=== PATIENT | male | born 1980 | race Caucasian/White ===

== ENCOUNTER 2016-11-29 09:25 | Emergency (ER) | payer OTHER ==
[~2016-11-29] VITALS: Ht 188 cm; Wt 99.5 kg
[2016-11-29 09:34] VITALS: TEMP 36.8; Ht 188 cm; Wt 99.5 kg
[2016-11-29] MEDS ORDERED: ACET-1256 PO (09:50)
[2016-11-29] MEDS ORDERED: ASPI325T39 PO (09:50)
[2016-11-29 10:01] VITALS: O2SAT 97
[2016-11-29] MEDS ORDERED: SODIUM CHLORIDE 0.9% 1000ML 1,000 ML IV STA (10:16)
[2016-11-29 10:24] LABS: BASO % 0.9 %; BASO ABS # 0.04 K/uL (0-0.2); COMPLETE YES; EOS % 5.1 %; HEMATOCRIT 46.4 % (42-52); IG% 0.2 %; LYMPH % 38.1 %; LYMPH ABS # 1.71 K/uL (1.2-3.4); MEAN CELL VOLUME 83.9 fL (80-100); MEAN CORPUSCULAR HEMOGLOBIN 31.5 pg (25-34); MEAN CORPUSCULAR HGB CONC 37.5 g/dl (32-36); MEAN PLATELET VOLUME 8.9 fL (7.4-10.4); MONO % 5.8 %; NEUT % 49.9 %; PLATELET COUNT 155 K/uL (130-400); RED BLOOD COUNT 5.53 M/uL (4.7-6.1); WHITE BLOOD COUNT 4.49 K/uL (4.8-10.8)
[2016-11-29 10:31] LABS: BLOOD UREA NITROGEN 11 mg/dl (7-18); BUN/CREATININE RATIO 9.1 (10-20); CALCIUM 9.2 mg/dl (8.5-10.1); CARBON DIOXIDE 29 mmol/L (21-32); CHLORIDE 106 mmol/L (98-107); GLUCOSE 114 mg/dl (70-99); POTASSIUM 3.6 mmol/L (3.5-5.1); SODIUM 142 mmol/L (136-145)
--- NOTE | 2016-11-29 10:35 | DIAGNOSTIC IMAGING REPORT ---
CHEST ONE VIEW PORTABLE CLINICAL HISTORY: Shortness of breath, hypertension, chest tightness. COMPARISON STUDY: No previous studies for comparison. FINDINGS: The cardiac and mediastinal contours are normal. There is no evidence of focal pulmonary consolidation. There is no evidence of failure. No pleural effusions are visualized.[ IMPRESSION: No active disease in the chest. Electronically signed by: Gerald Valentin M.D. 11/29/2016 10:33 AM Dictated Date/Time: 11/29/2016 10:33 AM
--- NOTE | 2016-11-29 11:56 | EMERGENCY ROOM VISIT NOTE ---
History Report prepared by Vince: Janelle Mott Under the Supervision of: Dr. Peter Mueller M.D. First contact with patient: 10:05 Chief Complaint: CARDIAC ASSESSMENT Stated Complaint: HYPERTENSION, CHEST TIGHTNESS Nursing Triage Summary: Pt. reports chest tightness and feels like his blood pressure is "getting higher and higher." He reports having a lot of anxiety recently. History of Present Illness The patient is a 36 year old male who presents to the Emergency Room with complaints of persistent chest pain starting 2 days ago. Over the last 24 hours , he has been feeling tense and the chest pain has been constant. He describes the pain as a pressure. He has taken a Tums to no significant relief. His chest pain does not worsen with lying flat. He notes an episode of diarrhea yesterday. He denies any nausea, vomiting, SOB, fever, chills, cough, congestion , headache, dizziness, leg swelling, melena, hematochezia, or dysuria. At his last check up 2 months ago, his blood pressure was high. He was not placed on medications at that time. He denies any history of smoking. He denies any recent travel or surgery. 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 He admits to occasional alcohol use on the weekends. He denies any drug use. He denies any family history of early heart attack. He denies any history of cancer or blood clots. Source of History: patient, spouse/significant other Onset: 2 days ago Position: chest Quality: pressure Timing: other (persistent) Associated Symptoms: + diarrhea, No fevers, No chills, No headache, No cough , No SOB, No nausea, No vomiting, No melena, No hematochezia, No urinary symptoms Note: Pt denies congestion, leg swelling. Review of Systems See HPI for pertinent positives and negatives. A total of ten systems were reviewed and were otherwise negative. Past Medical & Surgical Medical Problems: (1) No active medical problems Family History Blood clots Social History Smoking Status: Never Smoker Alcohol Use: occasionally Drug Use: none Occupation Status: employed Current/Historical Medications Scheduled PRN Acetaminophen (Tylenol), 500 MG PO Q6 PRN for Pain Miscellaneous Medications Aspirin (Aspirin Ec), 325 MG PO Allergies Coded Allergies: No Known Allergies (Unverified , 11/29/16) Physical Exam Vital Signs Date Time Temp Pulse Resp B/P (MAP) Pulse Ox O2 Delivery O2 Flow Rate FiO2 11/29/16 12:14 70 18 155/117 97 Room Air 11/29/16 11:32 68 18 149/112 97 Room Air 11/29/16 10:01 75 16 159/114 97 Room Air 11/29/16 10:01 97 Room Air 11/29/16 10:01 97 Room Air 11/29/16 09:45 75 11/29/16 09:34 36.8 79 18 160/110 97 Room Air Physical Exam GENERAL: Awake, alert, well-appearing, in no acute distress HENT: Normocephalic, atraumatic. Mucous membranes dry. EYES: Normal conjunctiva. Sclera non-icteric. NECK: Supple. No nuchal rigidity. FROM. No JVD. RESPIRATORY: Clear to auscultation. CARDIAC: Regular rate, normal rhythm. Extremities warm and well perfused. Pulses equal. ABDOMEN: Soft, non-distended. No tenderness to palpation. No rebound or guarding. No masses. RECTAL: Deferred. MUSCULOSKELETAL: Chest examination reveals no tenderness. The back is symmetrical on inspection without obvious abnormality. There is no CVA tenderness to palpation. No joint edema. LOWER EXTREMITIES: Calves are equal size bilaterally and non-tender. No edema. No discoloration. NEURO: Normal sensorium. No sensory or motor deficits noted. SKIN: No rash or jaundice noted. Medical Decision & Procedures ER Provider Diagnostic Interpretation: X-ray: Per my interpretation, radiologist review. CHEST ONE VIEW PORTABLE CLINICAL HISTORY: Shortness of breath, hypertension, chest tightness. COMPARISON STUDY: No previous studies for comparison. FINDINGS: The cardiac and mediastinal contours are normal. There is no evidence of focal pulmonary consolidation. There is no evidence of failure. No pleural effusions are visualized.[ IMPRESSION: No active disease in the chest. Electronically signed by: Gerald Valentin M.D. 11/29/2016 10:33 AM Dictated Date/Time: 11/29/2016 10:33 AM Laboratory Results 11/29/16 09:50 Red Blood Count 5.53, Mean Corpuscular Volume 83.9, Mean Corpuscular Hemoglobin 31.5, Mean Corpuscular Hemoglobin Concent 37.5, Mean Platelet Volume 8.9, Neutrophils (%) (Auto) 49.9, Lymphocytes (%) (Auto) 38.1, Monocytes (%) (Auto) 5.8, Eosinophils (%) (Auto) 5.1, Basophils (%) (Auto) 0.9, Neutrophils # (Auto) 2.24, Lymphocytes # (Auto) 1.71, Monocytes # (Auto) 0.26, Eosinophils # (Auto) 0.23, Basophils # (Auto) 0.04 11/29/16 09:50 Test 11/29/16 09:50 White Blood Count 4.49 K/uL (4.8-10.8) Red Blood Count 5.53 M/uL (4.7-6.1) Hemoglobin 17.4 g/dL (14.0-18.0) Hematocrit 46.4 % (42-52) Mean Corpuscular Volume 83.9 fL (80-100) Mean Corpuscular Hemoglobin 31.5 pg (25-34) Mean Corpuscular Hemoglobin Concent 37.5 g/dl (32-36) Platelet Count 155 K/uL (130-400) Mean Platelet Volume 8.9 fL (7.4-10.4) Neutrophils (%) (Auto) 49.9 % Lymphocytes (%) (Auto) 38.1 % Monocytes (%) (Auto) 5.8 % Eosinophils (%) (Auto) 5.1 % Basophils (%) (Auto) 0.9 % Neutrophils # (Auto) 2.24 K/uL (1.4-6.5) Lymphocytes # (Auto) 1.71 K/uL (1.2-3.4) Monocytes # (Auto) 0.26 K/uL (0.11-0.59) Eosinophils # (Auto) 0.23 K/uL (0-0.5) Basophils # (Auto) 0.04 K/uL (0-0.2) RDW Standard Deviation 37.7 fL (36.4-46.3) RDW Coefficient of Variation 12.4 % (11.5-14.5) Immature Granulocyte % (Auto) 0.2 % Immature Granulocyte # (Auto) 0.01 K/uL (0.00-0.02) Anion Gap 7.0 mmol/L (3-11) Est Creatinine Clear Calc Drug Dose 105.2 ml/min Estimated GFR () 88.4 Estimated GFR (Non- 76.3 BUN/Creatinine Ratio 9.1 (10-20) Calcium Level 9.2 mg/dl (8.5-10.1) Troponin I < 0.015 ng/ml (0-0.045) Laboratory results reviewed by me Medications Administered Medications (Trade) Dose Ordered Sig/Gume Route Start Time Stop Time Status Last Admin Dose Admin Sodium Chloride 1,000 ml @ 999 mls/hr Q1H1M STAT IV 11/29/16 10:16 11/29/16 11:16 DC 11/29/16 10:21 999 MLS/HR ECG Indication: chest pain Rate (beats per minute): 74 Rhythm: normal sinus Findings: no acute ischemic change, other (normal axis) ED Course 1007: The patient was evaluated in room B12B. A complete history and physical exam was performed. 1016: NSS 1000 ml @ 999 mls/hr IV. 1145: I reevaluated the patient. He is feeling somewhat better. I discussed the results and treatment plan with him. He verbalized understanding and agreement. He will follow up with his PCP this afternoon to discuss his high blood pressure. He was discharged home. Medical Decision I reviewed the patient's past medical history, medications, and the nursing notes as described above. Differential diagnosis: stress, anxiety, ACS, pneumonia, costochondritis, PE. Patient is a 36-year-old gentleman who presents to the emergency department with 2 days of constant chest pain per history of present illness. Arrives in no acute distress afebrile with stable vital signs. EKG and chest x-ray unremarkable. Troponin negative in the setting of 48 hours of constant symptoms. Patient is a heart score of 1, low risk ACS unlikely. Perc negative. WBC slightly decreased however no symptoms or signs of infection. Symptoms are not worse when supine therefore pericarditis not likely in the setting of normal EKG without OR depressions or spodick sign. Symptoms most likely related to patient's recent stress and anxiety with preoccupations regarding work responsibilities. Stress medication strategies discussed however patient will follow up with his primary care doctor for reevaluation and monitoring of his elevated blood pressure today. Patient agreeable and was discharged per instructions. Medication Reconcilliation Current Medication List: was personally reviewed by me Blood Pressure Screening Patient's blood pressure: Elevated blood pressure Blood pressure disposition: Referred to PCP Impression Primary Impression: Chest pain Additional Impression: Anxiety Scribe Attestation The scribe's documentation has been prepared under my direction and personally reviewed by me in its entirety. I confirm that the note above accurately reflects all work, treatment, procedures, and medical decision making performed by me. Departure Information Dispostion Home / Self-Care Referrals Indra Sanders M.D. (PCP) Patient Instructions Anxiety Body Response, Chest Pain - [facility], [facility] Additional Instructions Please follow up with your primary care physician today as scheduled for reevaluation of your blood pressure and to discuss your symptoms of stress and anxiety. Your white blood cells were slightly decreased and should be repeated at a later date. Otherwise, your exam, EKG, chest x-ray, and lab results did not show signs of an emergent condition. Return to the emergency department for worsening symptoms as described in the accompanying instructions. Problem Qualifiers
[2016-11-29 12:14] VITALS: BP 155/117; PULSE 70; O2SAT 97
== END 2016-11-29 12:22 | disposition home or self-care (01) ==
LOC: C.EDB 09:28
DX: R07.9 Chest pain, unspecified (principal); F41.9 Anxiety disorder, unspecified

== ENCOUNTER → 2017-06-17 | Outpatient (CLI) | payer OTHER ==
[~2017-06-17] MED LIST: ACET-1256 PO; ASPI325T39 PO
[2017-06-17 13:37] LABS: HEP C IGG 13 YRS+OLDER_RFLX NEG (NEG)
== END | disposition home or self-care (01) ==
LOC: C.LAB 11:12
PROVIDERS: ATTEND Specialist
DX: Z11.3 Encounter for screening for infections with a predominantly sexual mode of transmission (principal); Z11.4 Encounter for screening for human immunodeficiency virus [HIV]; Z11.59 Encounter for screening for other viral diseases

== ENCOUNTER → 2017-06-23 | Outpatient (CLI) | payer OTHER | END | disposition home or self-care (01) | LOC: C.LAB 08:20 | PROVIDERS: ATTEND Specialist | DX: Z31.41 Encounter for fertility testing (principal) ==

== ENCOUNTER → 2017-12-06 | Outpatient (CLI) | payer OTHER ==
[2017-12-06 10:41] LABS: BASO % 0.6 %; BASO ABS # 0.03 K/uL (0-0.2); EOS % 5.4 %; EOS ABS # 0.27 K/uL (0-0.5); HEMATOCRIT 44.3 % (42-52); HEMOGLOBIN 16.1 g/dL (14.0-18.0); IG# 0.01 K/uL (0.00-0.02); LYMPH % 40.9 %; LYMPH ABS # 2.05 K/uL (1.2-3.4); MEAN CORPUSCULAR HEMOGLOBIN 30.9 pg (25-34); MEAN CORPUSCULAR HGB CONC 36.3 g/dl (32-36); MEAN PLATELET VOLUME 9.2 fL (7.4-10.4); MONO % 8.4 %; MONO ABS # 0.42 K/uL (0.11-0.59); NEUT % 44.5 %; NEUT ABS # 2.23 K/uL (1.4-6.5); PLATELET COUNT 151 K/uL (130-400); RED CELL DISTRIBUTION WIDTH CV 12.7 % (11.5-14.5); RED CELL DISTRIBUTION WIDTH SD 38.4 fL (36.4-46.3); WHITE BLOOD COUNT 5.01 K/uL (4.8-10.8)
[2017-12-06 11:01] LABS: HEMOGLOBIN A1C 4.5 % (4.5-5.6)
[2017-12-06 11:21] LABS: ALKALINE PHOSPHATASE 56 U/L (45-117); ALT/SGPT 85 U/L (12-78); AST/SGOT 31 U/L (15-37); BLOOD UREA NITROGEN 15 mg/dl (7-18); CALCIUM 8.7 mg/dl (8.5-10.1); CARBON DIOXIDE 28 mmol/L (21-32); CHOLESTEROL 172 mg/dl (0-200); CREATININE 1.02 mg/dl (0.60-1.40); GLUCOSE 85 mg/dl (70-99); LDL CHOLESTEROL CALCULATED 79 mg/dl; POTASSIUM 3.7 mmol/L (3.5-5.1); SODIUM 138 mmol/L (136-145); TOTAL PROTEIN 6.9 gm/dl (6.4-8.2)
== END | disposition home or self-care (01) ==
LOC: C.LABBC 07:49
PROVIDERS: ATTEND Internal Medicine
DX: R03.0 Elevated blood-pressure reading, without diagnosis of hypertension (principal); E78.1 Pure hyperglyceridemia; E78.6 Lipoprotein deficiency; D23.9 Other benign neoplasm of skin, unspecified